=== PATIENT | female | born 1960 | race African-American/Black ===

== ENCOUNTER 2017-07-04 21:29 | Inpatient (IN) | payer MEDICARE, MEDICAID ==
[~2017-07-04] VITALS: Ht 154.9 cm; Wt 49.9 kg
[~2017-07-04 21:29] MED LIST: ASPI-1158 PO; ENAL20TA PO; MECL-127 PO; METF-414 PO; SERT100T PO; TRAM50TA94 PO; UNK MEDS
[2017-07-04] MEDS ORDERED: SODIUM CHLORIDE 0.9% 1,000 ML IV ONE (23:41)
[2017-07-04] MEDS ORDERED: NITROGLYCERIN OINT 1GM/INCH UDPKT TD STA (23:41)
[2017-07-05 00:07] LABS: BASOPHILS % 0.3 % (0.0-2.0); EOSINOPHILS % 0.5 % (0.0-5.0); HEMATOCRIT. 34.4 % (36.0-48.0); HEMOGLOBIN. 11.7 g/dL (12.0-16.0); LYMPHOCYTES % 28.9 % (20.0-50.0); MEAN CORPUSCULAR HEMOGLOBIN 32.7 pg (28.0-32.0); MEAN CORPUSCULAR VOLUME 96.6 fL (81.0-99.0); MEAN PLATELET VOLUME 7.5 fl (7.4-10.4); NEUTROPHILS % 64.3 % (40.0-76.0); PLATELET 238 x1000/uL (130-400); RED BLOOD CELL COUNT 3.56 mill/uL (4.2-5.4); RED CELL DISTRIBUTION WIDTH 13.9 % (11.6-14.6)
[2017-07-05 00:24] LABS: CHLORIDE 109 mEq/L (98-107)
[2017-07-05] MEDS ORDERED: MAGNESIUM/ALUMINUM HYDROXIDE/SIMETHICONE 30ML UDC PO PRN (03:15)
[2017-07-05] MEDS ORDERED: DOCUSATE SODIUM 100MG CAPSULE PO PRN (03:15)
[2017-07-05] MEDS ORDERED: CLONIDINE 0.1MG TABLET PO PRN (03:15)
[2017-07-05] MEDS ORDERED: ONDANSETRON HCL 4MG/2ML INJ IV PRN (03:15)
[2017-07-05] MEDS ORDERED: MORPHINE SULFATE 4 MG/ML CPJ (NOT FOR IM USE) IV PRN (03:15)
[2017-07-05] MEDS ORDERED: HYDROCODONE/ACETAMINOPHEN 5/325MG TABLET PO PRN (03:15)
[2017-07-05] MEDS ORDERED: LISI-604 PO (03:20)
[2017-07-05 03:26] VITALS: BP 121/78
[2017-07-05 03:29] VITALS: BP 121/78
[2017-07-05] MEDS ORDERED: IPRATROPIUM/ALBUTEROL 0.5-3(2.5)MG/3ML NEB HHN PRN (03:45)
[2017-07-05] MEDS ORDERED: DEXTROSE 50% WATER 50ML SYRINGE IV PRN (03:45)
[2017-07-05] MEDS: BLOOD SUGAR DIAGNOSTIC STRIP TEST SCH ×4 (06:07→21:16)
[2017-07-05 07:50] LABS: CREATINE KINASE 85 IU/L (26-192); CREATINE KINASE MB FRACTION 0.7 ng/mL (0.5-3.6)
[2017-07-05 08:00] VITALS: BP 115/69
[2017-07-05] MEDS: INSULIN LISPRO 100 UNITS/ML SUBCUT SCH ×4 (08:10→21:00)
[2017-07-05] MEDS: METOPROLOL TARTRATE 25MG TABLET PO SCH ×2 (09:00→21:00)
[2017-07-05] MEDS: AMLODIPINE 10MG TABLET PO SCH (09:43)
[2017-07-05] MEDS: ASPIRIN 81MG EC TABLET PO SCH (09:43)
[2017-07-05] MEDS: ENOXAPARIN 40MG/0.4ML SYR SUBCUT SCH (09:44)
[2017-07-05] MEDS ORDERED: REGADENOSON 0.4 MG/5 ML IV ONE ×2 (10:30→12:53)
[2017-07-05 12:00] VITALS: BP 125/66
[2017-07-05 12:13] LABS: T4 FREE 0.91 ng/dL (0.76-1.46)
[2017-07-05] MEDS ORDERED: SODIUM CHLORIDE 0.9% 10ML VIAL ONE (15:22)
[2017-07-05 16:00] VITALS: BP 110/67
[2017-07-05] MEDS ORDERED: ACETAMINOPHEN WITH CODEINE 300/30MG TABLET PO PRN (16:45)
[2017-07-05 16:58] LABS: CREATINE KINASE 78 IU/L (26-192); CREATINE KINASE MB FRACTION < 0.5 ng/mL (0.5-3.6)
[2017-07-05] MEDS: ACETAMINOPHEN WITH CODEINE 300/30MG TABLET PO PRN ×2 (18:12→22:15)
[2017-07-05 20:00] VITALS: BP 112/53
[2017-07-06] VITALS: BP 97/35
[2017-07-06 04:00] VITALS: BP 100/54
[2017-07-06 06:14] LABS: BASOPHILS % 0.3 % (0.0-2.0); EOSINOPHILS % 1.4 % (0.0-5.0); HEMATOCRIT. 33.5 % (36.0-48.0); HEMOGLOBIN. 11.5 g/dL (12.0-16.0); LYMPHOCYTES % 41.7 % (20.0-50.0); MEAN CORPUSCULAR HEMOGLOBIN 33.6 pg (28.0-32.0); MEAN CORPUSCULAR VOLUME 97.5 fL (81.0-99.0); MONOCYTES % 5.7 % (2.0-8.0); NEUTROPHILS % 50.9 % (40.0-76.0); PLATELET 219 x1000/uL (130-400); RED BLOOD CELL COUNT 3.43 mill/uL (4.2-5.4); RED CELL DISTRIBUTION WIDTH 13.8 % (11.6-14.6)
[2017-07-06] MEDS: BLOOD SUGAR DIAGNOSTIC STRIP TEST SCH ×2 (06:36→12:40)
[2017-07-06 06:39] LABS: CHLORIDE 109 mEq/L (98-107); HDL CHOLESTEROL 47 mg/dL (40-59); LDL CHOLESTEROL 105 mg/dL (5-100)
[2017-07-06 07:21] VITALS: BP 103/65
[2017-07-06] MEDS: INSULIN LISPRO 100 UNITS/ML SUBCUT SCH ×2 (08:10→13:10)
[2017-07-06] MEDS: METOPROLOL TARTRATE 25MG TABLET PO SCH (09:00)
[2017-07-06] MEDS: AMLODIPINE 10MG TABLET PO SCH (09:00)
[2017-07-06] MEDS: ASPIRIN 81MG EC TABLET PO SCH (10:10)
[2017-07-06] MEDS: ACETAMINOPHEN WITH CODEINE 300/30MG TABLET PO PRN (10:11)
[2017-07-06] MEDS: ENOXAPARIN 40MG/0.4ML SYR SUBCUT SCH (10:12)
[2017-07-06 12:55] VITALS: BP 108/74
== END 2017-07-06 13:10 | disposition home or self-care (01) | DRG 206 ==
LOC: ER 22:25 → 7WST 07-05 00:57 → EDBEDREQ 07-05 00:58 → EDBEDREQTM 07-05 00:58 → ENRESERV 07-05 01:59
PROVIDERS: ADMIT Hospitalist; ATTEND Hospitalist
DX: M94.0 Chondrocostal junction syndrome [Tietze] (principal); I11.0 Hypertensive heart disease with heart failure; I50.9 Heart failure, unspecified; R07.9 Chest pain, unspecified; E11.9 Type 2 diabetes mellitus without complications; E78.5 Hyperlipidemia, unspecified; F10.10 Alcohol abuse, uncomplicated; F12.90 Cannabis use, unspecified, uncomplicated; J44.9 Chronic obstructive pulmonary disease, unspecified; Z82.49 Family history of ischemic heart disease and other diseases of the circulatory system; Z87.891 Personal history of nicotine dependence; Z79.82 Long term (current) use of aspirin; Z79.899 Other long term (current) drug therapy
CPT/HCPCS: 36415; 71045; 78452; 80061; 82550; 82553; 82962; 83036; 83880; 84439; 84443; 84484; 85379; 93005; 93017; 93306; 93970; 96360; 99285; A9500; J1650; J2785; J7030